=== PATIENT | male | born 1965 | race Caucasian/White ===

== ENCOUNTER 2017-12-15 16:12 | Emergency (ER) | payer OTHER ==
[~2017-12-15 16:12] MED LIST: FLEXERIL10 MG PO; PERCOCET 325 MG1 TA2 PO
[2017-12-15 16:21] VITALS: BP 135/81
--- NOTE | 2017-12-15 16:24 | ED HAND/WRIST INJURY COMPLAINT ---
History of Present Illness General Chief Complaint: Hand or Wrist Injury Stated Complaint: "I CUT MY FINGER" RIGHT MIDDLE Source: patient Exam Limitations: no limitations Vital Signs & Intake/Output Vital Signs & Intake/Output Vital Signs Date Time Temp Pulse Resp B/P B/P Pulse O2 O2 Flow FiO2 Mean Ox Delivery Rate 12/15 1647 Room Air 12/15 1621 98.0 97 18 135/81 98 Room Air Allergies Coded Allergies: NO KNOWN ALLERGIES (08/20/12) Reconcile Medications CYCLOBENZAPRINE HCL (Flexeril) 10 MG TABLET 1 TAB PO TID PAIN Avoid operating motor vehicle or heavy machinery OXYCODONE HCL/ACETAMINOPHEN (Percocet 5-325 MG Tablet) 325 MG/5 MG TAB 1-2 TAB PO Q4-6 PRN PRN PAIN Triage Note: 52M STATES HE CUT TOP OF MIDDLE DIP JOINT WHICH WAS CAUGHT IN A METAL TRACK WHILE WORKING. STATES HE IS UTD ON TETANUS. COULDNT GET IT TO STOP BLEEDING, BLEEDING CONTROLLED AT THIS TIME Triage Nurses Notes Reviewed? yes Occurred: just prior to arrival Duration: minute(s):, constant Timing: recent history Injury Environment: home Pain/Injury Location: Right: 3rd finger. HPI: 52-year-old male comes into the emergency room with laceration to his right middle finger. Patient reportedly while working on a car at home. Tetanus shot is up-to-date in 2013. Some associated bleeding. He comes in for further evaluation. Denies significant pain. Patient does not think he broke anything. (Jeremias Delcid) Past History Travel History Traveled to [place] past 21 day No Medical History Any Pertinent Medical History? none Tetanus Vaccine: 01/15/14 Surgical History Surgical History: non-contributory Psychosocial History What is your primary language Pashto Tobacco Use: Current Daily Use Daily Tobacco Use Amount/Type: => 5 Cigarettes daily Family History Hx Contributory? No (Jeremias Delcid) Review of Systems Review of Systems Constitutional: Reports: no symptoms. EENTM: Reports: no symptoms. Respiratory: Reports: no symptoms. Cardiovascular: Reports: no symptoms. GI: Reports: no symptoms. Genitourinary: Reports: no symptoms. Musculoskeletal: Reports: see HPI. Skin: Reports: see HPI. Neurological/Psychological: Reports: no symptoms. Hematologic/Endocrine: Reports: no symptoms. Immunologic/Allergic: Reports: no symptoms. All Other Systems: Reviewed and Negative (Jeremias Delcid) Physical Exam Physical Exam General Appearance: well developed/nourished, mild distress Head: atraumatic Eyes: Bilateral: normal appearance. Ears, Nose, Throat: normal ENT inspection, hearing grossly normal Neck: normal inspection Cardiovascular/Respiratory: no respiratory distress Back: normal inspection Hand Left: normal inspection Hand Right: 3rd finger, SDUPERFICIAL LAC DORSAL ASPECT DIP, NO ACTIVE BLEEDING Neurologic/Tendon: normal sensation, normal motor functions, normal tendon functions, responds to pain, no evidence tendon injury, no pulse deficit Skin: intact, normal color, warm/dry (Jeremias Delcid) Progress Differential Diagnosis: contusion, dislocation, fracture, sprain Plan of Care: Clinically looks well. No suspicion for fracture. [employer] up-to-date. (Jeremias Delcid) Departure Departure Disposition: HOME OR SELF CARE Condition: Stable Clinical Impression Primary Impression: Finger laceration Referrals: Chasidy Gutierrez APRN (PCP/Family) Additional Instructions: Monitor signs of infection such as redness swelling discharge fever chills. Return if any other concerns worsening symptoms. Please go over all results of today's visit with your primary care doctor. Contact your primary care doctor to let them know you were here in the emergency room. There may be nonspecific findings which may not be related to your visit today here in the emergency room but may require further evaluation and chronic monitoring by your primary care doctor. If you had a laceration today the chance of foreign body always remains. You should follow-up with your primary care doctor for recheck in 3-5 days for a wound check. If you had an x-ray done there is a chance that a fracture could have been missed on initial read and you should follow-up with your primary care doctor for repeat x-rays if symptoms persist. If your blood pressure was elevated here in the emergency room please have rechecked by [facility] primary care doctor within the next 48. If you were prescribed a narcotic here in the emergency room or any type of controlled substances you're not allowed to drive while taking this medication or operate any type of heavy machinery. Narcotics can make you feel lightheaded dizziness nausea and can cause constipation. You may need to slat pickler a stool softener. Thank you for choosing [facility] emergency room. Please return to the emergency room immediately if you have any other concerns worsening of symptoms. Departure Forms: Customer Survey General Discharge Information (Jeremias Delcid) PA/MARKET RESEARCH ANALYST Co-Sign Statement Statement: ED Attending supervision documentation- [] I saw and evaluated the patient. I have also reviewed all the pertinent lab results and diagnostic results. I agree with the findings and the plan of care as documented in the PA's/MARKET RESEARCH ANALYST's documentation. [X] I have reviewed the ED Record and agree with the PA's/MARKET RESEARCH ANALYST's documentation. [] Additions or exceptions (if any) to the PAs/MARKET RESEARCH ANALYST's note and plan are summarized below: [] (Justice TAY,Rob Irby) Procedures Laceration/Wound Repair Progress: Right middle finger, superficial laceration 1 cm across right middle finger dorsal aspect, Dermabond glue used, finger wrap, fingers SPLINT (Jeremias Delcid)
== END 2017-12-15 16:48 ==
LOC: ERH 16:12
DX: S61.212A Laceration without foreign body of right middle finger without damage to nail, initial encounter (principal); W45.8XXA Other foreign body or object entering through skin, initial encounter; Y92.89 Other specified places as the place of occurrence of the external cause; Y93.89 Activity, other specified; F17.210 Nicotine dependence, cigarettes, uncomplicated